=== PATIENT | female | born 1995 | race Two or more races ===

== ENCOUNTER 2023-05-26 00:10 | Emergency (ER) | payer MEDICAID, OTHER ==
[~2023-05-26] VITALS: Ht 149.9 cm; Wt 81.1 kg
[2023-05-26] MEDS ORDERED: KETOROLAC TROMETH 60MG/2ML VIAL IM ONE (01:45)
[2023-05-26] MEDS ORDERED: DexAMETHasone SOD PHOS 10MG/1ML VIAL INJ IM ONE (01:45)
[2023-05-26] MEDS ORDERED: diphenhdrAMINE HCL 25 MG CAP PO ONE (01:45)
[2023-05-26] MEDS ORDERED: ACETAMINOPHEN 500 MG TAB PO ONE (01:45)
[2023-05-26] MEDS ORDERED: AMOX500C2 PO (01:47)
[2023-05-26 05:21] VITALS: BP 136/91; PULSE 76; RESP 16; TEMP 98; O2SAT 98
== END 2023-05-26 01:52 | disposition home or self-care (01) ==
LOC: ER 00:10
DX: H92.02 Otalgia, left ear (principal); G43.909 Migraine, unspecified, not intractable, without status migrainosus; F17.210 Nicotine dependence, cigarettes, uncomplicated; F12.10 Cannabis abuse, uncomplicated
CPT/HCPCS: 96372; 99284; J1100; J1885

== ENCOUNTER 2023-09-23 19:25 | Emergency (ER) | payer MEDICAID ==
[~2023-09-23] VITALS: Ht 149.9 cm; Wt 80.5 kg
[~2023-09-23 19:25] MED LIST: AMOX500C2 PO
[2023-09-23 20:07] VITALS: BP 131/89; PULSE 104; RESP 19; O2SAT 97
[2023-09-23] MEDS ORDERED: ACETAMINOPHEN 325 MG TAB PO ONE (20:30)
== END 2023-09-23 21:42 | disposition left against medical advice (07) ==
LOC: ER 19:25
DX: R19.7 Diarrhea, unspecified (principal); Z53.21 Procedure and treatment not carried out due to patient leaving prior to being seen by health care provider